=== PATIENT | male | born 1940 | race Caucasian/White ===

== ENCOUNTER 2016-12-13 15:19 | Observation (INO) | payer OTHER ==
[~2016-12-13] VITALS: Ht 172.7 cm; Wt 83.9 kg
--- NOTE | ~2016-12-13 | EKG ---
PATIENT: KAVITHA JARVIS UNIT #: [id number] Ventricular Rate: 55 BPM Atrial Rate: 55 BPM P-R Interval: 184 ms QRS Duration: 74 ms Q-T Interval: 418 ms QTC Calculation(Bezet): 399 ms P Mcdonald: 67 degrees Calculated R Mcdonald: 12 degrees Calculated T Mcdonald: 9 degrees Diagnosis Line: Sinus bradycardia Diagnosis Line: Otherwise normal ECG Diagnosis Line: When compared with ECG of 21-JAN-2015 12:06, Diagnosis Line: No significant change was found Diagnosis Line: Confirmed by MULU BOOGIE MD ([id number]) on Diagnosis Line: 12/17/2016 10:45:01 AM INTERPRETING MD: KEAGAN LARA
--- NOTE | ~2016-12-13 | DS ---
Unit #: [id number] #: [id number] Patient: KAVITHA JARVIS [id number] [address] [place], [place] [address] [id number] MR#: [id number] NAME: KAVITHA JARVIS. ROOM: [address]169 Age: 76 Sex: M Admission Date: 12/13/2016 : 1940 Discharge Date: Attending Physician: Randy Keita M.D. Primary Care Physician: Gal Osman M.D. DISCHARGE SUMMARY SHORT STAY SUMMARY HISTORY OF PRESENT ILLNESS This is a 76-year-old male previously known to Dr. 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 The patient lives with his brother and has dementia. The majority of the history was obtained from his brother. Reports ongoing weakness especially in the mornings for the last few days. States yesterday afternoon while eating he experienced some weakness and fatigue. His brother states the patient said he needed to come to the ER. He denies chest pain or pressure. Denies shortness of air or palpitations. Denies any orthopnea. Denies recent illness. States he feels fine today. He is not very active, but he does ambulate within his home, and he goes grocery shopping with his brother with no episodes of chest pain or shortness of air. PAST MEDICAL HISTORY 1. Hypertension. 2. Hyperlipidemia. 3. Prostate cancer. 4. Dementia. 5. Presyncope. 6. Negative Lexiscan stress test in March 2014. 7. Sick sinus syndrome with tachy-hien syndrome. 8. He denies any orthopnea, nocturnal dyspnea, leg edema, syncope, near syncope, palpitations, strokes, or transient ischemic attacks. PAST SURGICAL HISTORY 1. Tonsillectomy. 2. Cataract surgery. 3. EGD and colonoscopy. SOCIAL HISTORY He is a lifetime nonsmoker. He denies alcohol or illicit drug use. He lives with his brother. He walks without the assistance of a cane or walker. FAMILY HISTORY He denies a family history of premature coronary artery disease. Unit #: [id number] #: [id number] Patient: KAVITHA JARVIS ALLERGIES No known drug allergies. HOME MEDICATIONS 1. Namenda XR 21 mg p.o. every morning. 2. Donepezil 10 mg p.o. every morning. 3. Norvasc 10 mg p.o. every morning. 4. K-Dur 20 mEq p.o. every morning. 5. Lopid 600 mg p.o. twice daily. 6. Caltrate 600 mg p.o. twice daily. 7. Lisinopril 10 mg p.o. every evening. 8. Atorvastatin 10 mg p.o. every evening. REVIEW OF SYSTEMS A 10-point review of systems was conducted and is otherwise negative except for as indicated in the HPI. PHYSICAL EXAMINATION VITAL SIGNS: Temperature 98, heart rate 47, respiratory rate 18, blood pressure 122/54. GENERAL: This is an alert, 76-year-old male resting in bed in no acute distress. HEENT: Head is atraumatic and normocephalic. Pupils are equal and reactive to light. Mucous membranes are moist. NECK: Trachea is midline. No thyromegaly. No JVD. CARDIOVASCULAR: S1 and S2, regular rate and rhythm. No significant murmurs, rubs, or gallops. LUNGS: Clear. Diminished in bases. Nonlabored respirations. ABDOMEN: Soft, nontender, nondistended. EXTREMITIES: Pulses are palpable. No pedal edema. No cyanosis. NEUROLOGIC: An awake and alert 76-year-old male. Moves all extremities equally and follows commands without difficulty. DIAGNOSTIC STUDIES LABORATORY: Sodium 138, potassium 4.2, chloride 104, BUN 23, creatinine 1.1, glucose 88, AST 27, ALT 17, alkaline phosphatase 64. Point of care troponin less than 0.05. Hemoglobin 12.6, hematocrit 36.2, white blood cell count 4.8, and platelets 345,000. Urinalysis otherwise negative. IMAGING: CT of the head showed no acute findings. CARDIOLOGY: EKG showed sinus bradycardia with a ventricular rate of 55 and nonspecific T wave abnormalities. ASSESSMENT 1. Depression. 2. Dementia. 3. Probable sick sinus syndrome. PLAN 1. He is stable for discharge home. Discharge home today. 2. Event monitor for two weeks to evaluate and assess for sick sinus syndrome or tachy-hien syndrome. 3. Add Zoloft. 4. Follow up with primary care doctor, Dr. Osman, in four to six weeks. 1. Dictated by... Marci Brito APRN for Unit #: [id number] #: [id number] Patient: KAVITHA JARVIS Marco Shea TD: 12/14/2016 19:03 JOB #: [id number] DISCHARGE SUMMARY Page 1 of 1 X X DISCHARGE SUMMARY
--- NOTE | ~2016-12-13 | CT71 ---
[facility] A Service of [facility] RADIOLOGY TEXT RESULTS PATIENT: KAVITHA JARVIS LOCATION: [facility] : 38 UNIT #: [id number] AGE: [address]: Catalino Fournier DO SEX: M ORDER DR: [id number] [facility] [address] [place], [place] [address] [id number] MR#: [id number] #: [id number] NAME: KAVITHA JARVIS. : 1940 SEX: M STUDY DATE/TIME: 12/13/2016 17:59 UNIT: CEDOF ROOM: [id number] STUDY DESCRIPTION: CT Head Wo Contrast Attending Physician: Randy Keita M.D. Ordering Physician: Catalino Fournier D.O. Primary Care Physician: Gal Osman M.D. MEDICAL IMAGING REPORT This report is preliminary unless electronic signature is present EXAM CT head without IV contrast. COMPARISON November 06, 2014. INDICATION 68-year-old male with confusion since this morning. Weakness. TECHNIQUE This CT exam was performed with one or more of the following radiation dose reduction techniques: automatic exposure control, adjustment of mA and/or kV according to patient size, and iterative reconstruction. FINDINGS Visualized mastoid air cells, middle ears, and paranasal sinuses are well-aerated. No acute fractures or suspicious osseous lesions. There is moderate to severe cerebral and cerebellar volume loss. No abnormal extraaxial fluid collection or mass effect. No acute intracranial hemorrhage. Senescent calcifications noted at the lentiform nuclei bilaterally. Detailed evaluation of the brain is limited by motion. Moderate white matter chronic small vessel ischemic changes are grossly stable. IMPRESSION 1. No acute intracranial abnormality. 2. Grossly stable moderate to severe cerebral and cerebellar volume loss and stable moderate chronic small vessel ischemic changes. Dictated by... [facility] [place] [facility]Y TEXT RESULTS PATIENT: KAVITHA JARVIS LOCATION: [facility] : 38 UNIT #: [id number] AGE: [address]: Hottman,Catalino M DO SEX: M ORDER DR: Jose Lee M.D. THIS IS AN ELECTRONICALLY VERIFIED REPORT Jose Lee M.D. at 12/19/2016 9:28 PM MARIBEL/april TD: 12/13/2016 22:33 JOB #: [id number] MEDICAL IMAGING REPORT Page 1 of 1 COPY
[~2016-12-13 15:19] MED LIST: ACETAMINOPHEN325 MG PO; AMLODIPINE BESYL5 MG PO; ARICEPT5 MG PO; ASPIRIN81 M1 PO; ASPIRIN81 MG PO; ATENOLOL25 GM PO; ATENOLOL25 MG PO; ATORVASTATIN CA10 MG PO; DONEPEZIL HCL10 MG PO; FISH OIL300 MG PO; GARLIC1000 MG PO; GLUCOSAMINE CHO PO; HYDROCHLOROTHIA25 MG PO; K-DUR20 ME1 PO; LISINOPRIL10 MG PO; LISINOPRIL20 MG PO; LOPID600 MG PO; MULTI-DAY VITAM1 TAB PO; MULTIVITAMIN1 UDCAP PO; NAMENDA XR21 MG PO; NEXIUM PO; NORVASC10 MG PO; PAIN & FEVER325 MG PO; TENORMIN25 MG PO; VITAMIN E1000 UNI1 PO
[2016-12-13 16:51] LABS: BASOPHIL# 0.1 X10e3 (0-0.3); BASOPHIL% 1.3 % (0-2.5); EOSINOPHIL# 0.2 X10e3 (0-0.7); EOSINOPHIL% 3.4 % (0.0-7.0); HEMATOCRIT 36.2 % (38.0-50.0); HEMOGLOBIN 12.6 gm/dL (13.0-16.0); LYMPHOCYTE# 1.2 X10e3 (1.0-3.5); LYMPHOCYTE% 24.9 % (17.0-45.0); MEAN CELL VOLUME 95.4 FL (83-96); MEAN CORPUSCULAR HEMOGLOBIN 33.2 PG (28-34); MEAN CORPUSCULAR HGB CONC 34.8 g/dL (30-36); MEAN PLATELET VOLUME 7.3 FL (6.5-11.5); MONOCYTE# 0.5 X10e3 (0-1.0); MONOCYTE% 9.6 % (3.0-12.0); NEUTROPHIL# 2.9 X10e3 (1.5-7.1); NEUTROPHIL% 60.8 % (40-75); PLATELET COUNT 345 X10e3 (140-420); RED CELL DISTRIBUTION WIDTH 13.3 % (11.0-15.5); WHITE BLOOD COUNT 4.8 X10e3 (4.0-10.5)
[2016-12-13 16:56] LABS: DIFF IND NO
[2016-12-13 17:04] LABS: URINE SOURCE CLEAN CATCH
[2016-12-13 17:08] LABS: URINE APPEARANCE CLEAR; URINE BILIRUBIN NEG (NEG); URINE BLOOD NEG (NEG); URINE COLOR YELLOW; URINE GLUCOSE NEG (NEG); URINE KETONE NEG (NEG); URINE LEUKOCYTE ESTERASE NEG (NEG); URINE NITRATE NEG (NEG); URINE PH 5.5 (5-8); URINE PROTEIN NEG (NEG); URINE SPECIFIC GRAVITY 1.018 (1.003-1.035); URINE UROBILINOGEN 0.2 MG/DL (NEG)
[2016-12-13 17:18] LABS: ALBUMIN SERUM 3.8 g/dL (3.5-5.0); BILIRUBIN, DIRECT 0.1 mg/dL (0.0-0.2); BILIRUBIN,INDIRECT 0.7 mg/dL (0.0-0.9); BILIRUBIN,TOTAL 0.8 mg/dL (0.2-2.0); BUN/CREATININE RATIO 20.9; CALCIUM SERUM 9.4 mg/dL (8.4-10.2); CREATININE SERUM 1.1 mg/dL (0.6-1.4); POTASSIUM 4.2 mmol/L (3.5-5.1); PROTEIN TOTAL SERUM 7.1 g/dL (6.0-8.3)
[2016-12-13 17:22] LABS: CULTURE INDICATED? NO
[2016-12-13 17:31] LABS: POC - CKMB 1.3 ng/mL (0.0-7.9); POC - TROPONIN <0.05 ng/mL (<=0.05)
[2016-12-13] MEDS ORDERED: NAMENDA XR21 MG PO (19:34)
[2016-12-13] MEDS ORDERED: DONEPEZIL HCL10 MG PO (19:36)
[2016-12-13] MEDS ORDERED: NORVASC10 MG PO (19:36)
[2016-12-13] MEDS ORDERED: K-DUR20 ME2 PO (19:37)
[2016-12-13] MEDS ORDERED: LOPID600 MG PO (19:38)
[2016-12-13] MEDS ORDERED: CALTRATE 600+D PO (19:38)
[2016-12-13] MEDS ORDERED: LISINOPRIL10 MG PO (19:39)
[2016-12-13] MEDS ORDERED: ATORVASTATIN CA10 MG PO (19:39)
[2016-12-13 19:41] LABS: POC - CKMB 1.1 ng/mL (0.0-7.9); POC - TROPONIN <0.05 ng/mL (<=0.05)
[2016-12-14] MEDS ORDERED: ZOLOFT PO (10:55)
== END 2016-12-14 10:54 | disposition home or self-care (01) ==
LOC: CED 15:19 → CEDOF 20:40 → CED 20:40 → CEDOF 21:07
PROVIDERS: Emergency Medicine
DX: R55 Syncope and collapse (principal); E78.5 Hyperlipidemia, unspecified; I10 Essential (primary) hypertension; F03.90 Unspecified dementia, unspecified severity, without behavioral disturbance, psychotic disturbance, mood disturbance, and anxiety; Z79.899 Other long term (current) drug therapy; Z90.89 Acquired absence of other organs; Z86.79 Personal history of other diseases of the circulatory system
CPT/HCPCS: 27767; 70450; 80048; 80076; 81003; 82553; 82947; 84484; 85025; 93005; 99285; G0378